=== PATIENT | female | born 1950 | race Caucasian/White ===

== ENCOUNTER 2019-08-26 12:28 | Emergency (ER) | payer MEDICARE, OTHER ==
[~2019-08-26] VITALS: Ht 165.1 cm; Wt 95.3 kg
[2019-08-26 14:55] LABS: Basophils # (auto) 0 uL; Basophils % (auto) 0.5 % (0.0-2.0); Eosinophils # (auto) 0.1 uL; Eosinophils % (auto) 0.7 % (0.0-7.0); Hematocrit 46.2 % (36.0-46.0); Hemoglobin 15.8 g/dL (12.2-16.2); Lymphocytes # (auto) 1.8 uL; Lymphocytes % (auto) 21.4 % (10.0-50.0); Mean Corpuscular Hemoglobin 33.4 pg (28.0-32.0); Mean Corpuscular Hgb Conc. 34.1 g/dL (32.0-36.0); Monocytes # (auto) 0.6 uL; Monocytes % (auto) 7.5 % (0.0-12.0); Neutrophils % (auto) 69.9 % (37.0-80.0); Platelet Count (auto) 304 10^3/uL (140-450); Red Blood Cells 4.71 10^6/uL (4.0-5.20); Red Cell Distribution Width 12.6 % (11.8-14.3); White Blood Cell 8.5 10^3/uL (4.4-10.8)
[2019-08-26 15:07] LABS: Albumin 4.4 g/dL (3.4-5.0); Anion Gap 6 (5-15); Blood Urea Nitrogen 15 mg/dL (7-18); Calcium 9.3 mg/dL (8.5-10.1); Carbon Dioxide 25 mmol/L (21-32); Chloride 108 mmol/L (98-107); Glucose 91 mg/dL (74-106); Potassium 3.7 mmol/L (3.5-5.1); Sodium 139 mmol/L (136-145)
[2019-08-26 15:09] LABS: Alanine Aminotransferase 24 U/L (13-56); Aspartate Aminotransferase 14 U/L (15-37); GFR African American 82 mL/min; GFR Non-African American 68 mL/min
[2019-08-26 15:14] LABS: Alkaline Phosphatase 106 U/L (45-117); Bilirubin, Total 0.6 mg/dL (0.2-1.0); Total Protein 7.9 g/dL (6.4-8.2)
[2019-08-26 18:54] VITALS: BP 167/91
== END 2019-08-26 18:56 | disposition home or self-care (01) ==
LOC: EDBD 12:28 → ER 12:35
DX: R56.9 Unspecified convulsions (principal); R53.1 Weakness; R20.0 Anesthesia of skin; Z88.0 Allergy status to penicillin; Z88.5 Allergy status to narcotic agent; Z88.1 Allergy status to other antibiotic agents
CPT/HCPCS: 36415; 70450; 71045; 80053; 84484; 85025

== ENCOUNTER 2020-02-12 12:16 | Inpatient (IN) | payer OTHER, MEDICAID ==
[~2020-02-12] VITALS: Ht 165.1 cm; Wt 100.3 kg
[2020-02-12] MEDS ORDERED: DOXYCYCLINE 100MG/250ML 250 ML IV ONE (14:30)
[2020-02-12] MEDS ORDERED: ZINC SULFATE 220mg CAP or TAB PO ONE (14:30)
[2020-02-12] MEDS ORDERED: ASCORBIC ACID 500 MG TAB PO ONE (14:30)
[2020-02-12 16:50] LABS: Basophils # (auto) 0 10 ^3/uL (0-0.2); Basophils % (auto) 0.3 % (0.0-2.0); Eosinophils # (auto) 0.1 10 ^3/uL (0-0.8); Eosinophils % (auto) 0.7 % (0.0-7.0); Hematocrit 44.7 % (36.0-46.0); Hemoglobin 15.2 g/dL (12.2-16.2); Lymphocytes % (auto) 21.1 % (10.0-50.0); Mean Corpuscular Hemoglobin 33.5 pg (28.0-32.0); Mean Corpuscular Hgb Conc. 33.9 g/dL (32.0-36.0); Mean Corpuscular Volume 98.9 fL (80.0-100.0); Monocytes # (auto) 0.6 10 ^3/uL (0-1.3); Neutrophils # (auto) 6.6 10 ^3/uL (1.6-8.6); Neutrophils % (auto) 70.9 % (37.0-80.0); Nucleated Red Blood Cells % 0.1 %; Platelet Count (auto) 298 10^3/uL (140-450); Red Blood Cells 4.52 10^6/uL (4.0-5.20); Red Cell Distribution Width 12.5 % (11.8-14.3); White Blood Cell 9.3 10^3/uL (4.4-10.8)
[2020-02-12 17:04] LABS: Urine Bacteria FEW /hpf (None Seen); Urine Blood 1+ /uL (Negative); Urine Specific Gravity 1.013 (1.001-1.035); Urine WBC 3 /hpf (0 - 5)
[2020-02-12 17:14] LABS: INR 0.95 (0.9-1.15); Partial Thromboplastin Time 27.3 sec (23.0-31.2)
[2020-02-12 17:29] LABS: Albumin 4.2 g/dL (3.4-5.0); Calcium 9.7 mg/dL (8.5-10.1); Magnesium 2.3 mg/dL (1.6-2.6); Potassium 4.1 mmol/L (3.5-5.1)
[2020-02-12 17:34] LABS: BUN/Creatinine Ratio 19.2; Bilirubin, Total 0.3 mg/dL (0.2-1.0); Total Protein 7.8 g/dL (6.4-8.2)
[2020-02-12] MEDS ORDERED: NITROGLYCERIN 0.4 MG SL TAB SL PRN (18:15)
[2020-02-12] MEDS ORDERED: MORPHINE SULF INJ 2 MG/ML SYRINGE 1ML IV PRN (18:15)
[2020-02-12] MEDS ORDERED: DEXTROSE (50%) 50ML SYRG IV PRN (18:45)
[2020-02-12] MEDS ORDERED: LACTULOSE 20Gm/30ML SOLN PO PRN (18:45)
[2020-02-12] MEDS ORDERED: PROMETHAZINE HCL 25 MG/ML 1ML IV PRN (18:45)
[2020-02-12] MEDS ORDERED: ACETAMINOPHEN 500 MG TAB PO PRN (18:45)
[2020-02-12] MEDS ORDERED: ALBUTEROL SULF 2.5 MG/0.5ML(0.5%) NEB SOLN NEB PRN (18:45)
[2020-02-12] MEDS ORDERED: ENALAPRILAT 1.25 MG/ML-1ML VIAL IV PRN (19:00)
[2020-02-12 21:37] VITALS: BP 168/90
[2020-02-12] MEDS ORDERED: TEMAZEPAM 15 MG CAP PO PRN (22:00)
--- NOTE | 2020-02-12 23:00 | NUR ---
MS admit from ER ADILIA,NIKOLE S admitted to tele/MS. Patient oriented to ISABELLE BISHOP, RN primary RN, room 236. Patient weighed by bedscale and encouraged to call if they need something. All questions and concerns addressed, patient verbalized understanding. Bed locked, in lowest position, call light within reach, side rails up x2. Will continue to monitor Q1hr and PRN.
[2020-02-12] MEDS: ALBUTEROL SULF 2.5 MG/0.5ML(0.5%) NEB SOLN NEB SCH (23:01)
[2020-02-12] MEDS: IPRATROPIUM BROM 0.5 MG/2.5ML INH SOL NEB SCH (23:02)
[2020-02-12] MEDS: FUROSEMIDE 40 MG/4 ML VIAL IV SCH (23:18)
[2020-02-12] MEDS: methylPREDNISolone SOD SUCC 40 MG/ML VL IV SCH (23:18)
[2020-02-12] MEDS: ENOXAPARIN SOD 40 MG/0.4 ML SYRINGE SC SCH (23:19)
[2020-02-12] MEDS: POTASSIUM CHL 20 Meq TABLET PO SCH (23:19)
[2020-02-12] MEDS: SODIUM CHLOR 0.9% PF (SALINE LOCK) 10ML VIAL/SYR IV SCH (23:19)
[2020-02-12] MEDS: CARVEDILOL 3.125 MG TAB PO SCH (23:20)
[2020-02-12] MEDS: ACCU-CHEK COMFORT CURVE STRIP VI SCH (23:20)
[2020-02-12] MEDS: GABAPENTIN 300 MG CAP PO SCH (23:20)
[2020-02-12] MEDS: InsuLIN REG 1unit/0.01ml Soln (100units/ml) SC SCH (23:20)
[2020-02-12] MEDS: ATORVASTATIN 20 MG TAB PO SCH (23:20)
[2020-02-12] MEDS: MORPHINE SULF INJ 2 MG/ML SYRINGE 1ML IV PRN (23:20)
[2020-02-13] VITALS (7 sets, daily range): BP systolic 107–148; BP diastolic 74–94
[2020-02-13] MEDS: SODIUM CHLOR 0.9% PF (SALINE LOCK) 10ML VIAL/SYR IV SCH ×3 (05:28→21:38)
[2020-02-13] MEDS: GABAPENTIN 300 MG CAP PO SCH ×3 (05:28→21:36)
[2020-02-13] MEDS: MORPHINE SULF INJ 2 MG/ML SYRINGE 1ML IV PRN ×4 (05:29→23:56)
[2020-02-13] MEDS: methylPREDNISolone SOD SUCC 40 MG/ML VL IV SCH ×2 (06:38→17:56)
[2020-02-13] MEDS: DOXYCYCLINE 100MG/250ML 250 ML IV SCH ×2 (06:38→18:00)
[2020-02-13] MEDS: InsuLIN REG 1unit/0.01ml Soln (100units/ml) SC SCH ×4 (06:39→21:38)
[2020-02-13] MEDS: LEVOTHYROXINE SODIUM 112 MCG TAB PO SCH (06:39)
[2020-02-13] MEDS: ACCU-CHEK COMFORT CURVE STRIP VI SCH ×4 (06:39→21:37)
[2020-02-13] MEDS: IPRATROPIUM BROM 0.5 MG/2.5ML INH SOL NEB SCH ×4 (06:41→22:15)
[2020-02-13] MEDS: ALBUTEROL SULF 2.5 MG/0.5ML(0.5%) NEB SOLN NEB SCH ×4 (06:41→22:14)
[2020-02-13] MEDS: ASPirin 81 mg TAB PO SCH (09:26)
[2020-02-13] MEDS: POTASSIUM CHL 20 Meq TABLET PO SCH (09:27)
[2020-02-13] MEDS: ENALAPRIL MALEATE 2.5 MG TAB PO SCH (09:28)
[2020-02-13] MEDS: FUROSEMIDE 40 MG/4 ML VIAL IV SCH (09:28)
[2020-02-13] MEDS: CARVEDILOL 3.125 MG TAB PO SCH ×2 (09:29→21:42)
[2020-02-13] MEDS: NITROGLYCERIN 0.2MG/HR TOPICAL PATCH TD SCH (09:31)
--- NOTE | 2020-02-13 09:35 | NUR ---
Patient sitting on side of bed with no complaint of pain. Scheduled medications given per order. Patient stable at this time.
--- NOTE | 2020-02-13 10:25 | NUR ---
Patient sitting on side of bed with Dr. Gaona at bedside. Patient stable.
[2020-02-13] MEDS ORDERED: IOHEXOL 350 MG/ML 100ML IJ ONE (11:33)
--- NOTE | 2020-02-13 11:50 | NUR ---
Patient resting quietly in bed with Echo in progress. Checked blood sugar: 262 mg/dl - will cover per sliding scale. Patient stable.
[2020-02-13] MEDS: ENOXAPARIN SOD 40 MG/0.4 ML SYRINGE SC SCH (12:07)
--- NOTE | 2020-02-13 12:12 | NUR ---
Covered per sliding scale. Scheduled subq med given. Patient medicated for 10/10 chest pain. Echo still in progress. Patient stable.
--- NOTE | 2020-02-13 13:15 | NUR ---
Patient taken via wheelchair to XR Dept for CT.
--- NOTE | 2020-02-13 13:30 | NUR ---
Patient returned to unit in stable condition. Patient now sitting on side of bed with no respiratory distress noted.
--- NOTE | 2020-02-13 14:06 | NUR ---
ss consult Per ss consult advanced directive. Jess unit sec will provide patient with advanced directive in covid unit. Addendum: 02/13/20 at 1407 by Shani RAJAN Amended: Links added.
--- NOTE | 2020-02-13 14:28 | NUR ---
Patient ambulated to bathroom and back to bed. Scheduled medication given per order. Patient sitting on side of bed with no respiratory distress noted. Patient stable.
--- NOTE | 2020-02-13 17:59 | NUR ---
Patient sitting in bed with no distress noted. Checked blood sugar: 201 mg/dl - will cover per sliding scale. Patient stable.
--- NOTE | 2020-02-13 19:08 | NUR ---
Respiratory note: PT NOT IN ROOM AT THIS TIME FOR SCHEDULED MED NEB
--- NOTE | 2020-02-13 19:28 | NUR ---
Called Pharmacy: Called pharmacy regarding IV Vibramycin. Out of IV Vibramycin, informed to call hospitalist to change to PO. Will call hospitalist.
--- NOTE | 2020-02-13 19:32 | NUR ---
Called and spoke with Hospitalist: Spoke with Hospitalist Derrek regarding IV Vibramycin out of stock. Hospitalist informed to notify day shift hospitalist regarding Vibramycin.
--- NOTE | 2020-02-13 19:35 | NUR ---
Opening Shift Note Assumed care of patient, awake and alert. No S/S of distress/SOB noted. Instructed on POC and to call for assist PRN. Bed is in lowest locked position with bed rails up x2 and call light is within reach of the patient.
--- NOTE | 2020-02-13 19:58 | NUR ---
Respiratory note: PT STILL NOT IN ROOM AT THIS TIME FOR SCHEDULED MED NEB TX. WILL RESUME WITH NEXT SCHEDULED MED NEB
--- NOTE | 2020-02-13 21:18 | NUR ---
Diaper: Educated patient about no diaper policy and risk for skin break down. Patient refused to take off diaper but verbalized understanding of education.
[2020-02-13] MEDS: traMADol HCL 50 MG TAB PO PRN (21:37)
[2020-02-13] MEDS: ATORVASTATIN 20 MG TAB PO SCH (21:37)
[2020-02-14 05:00] VITALS: BP 128/76
[2020-02-14] MEDS: MORPHINE SULF INJ 2 MG/ML SYRINGE 1ML IV PRN ×2 (05:00→10:44)
[2020-02-14] MEDS: DOXYCYCLINE 100MG/250ML 250 ML IV SCH (06:00)
[2020-02-14] MEDS: GABAPENTIN 300 MG CAP PO SCH (06:13)
[2020-02-14] MEDS: SODIUM CHLOR 0.9% PF (SALINE LOCK) 10ML VIAL/SYR IV SCH (06:15)
[2020-02-14] MEDS: ACCU-CHEK COMFORT CURVE STRIP VI SCH (06:16)
[2020-02-14] MEDS: InsuLIN REG 1unit/0.01ml Soln (100units/ml) SC SCH (06:16)
[2020-02-14] MEDS: methylPREDNISolone SOD SUCC 40 MG/ML VL IV SCH (06:17)
[2020-02-14] MEDS: traMADol HCL 50 MG TAB PO PRN ×2 (06:20→11:00)
[2020-02-14] MEDS: ALBUTEROL SULF 2.5 MG/0.5ML(0.5%) NEB SOLN NEB SCH ×2 (06:21→12:14)
[2020-02-14] MEDS: IPRATROPIUM BROM 0.5 MG/2.5ML INH SOL NEB SCH ×2 (06:21→12:14)
[2020-02-14] MEDS ORDERED: TRAZ-181 PO (06:23)
[2020-02-14] MEDS ORDERED: MELA3TAB27 PO (06:24)
[2020-02-14] MEDS ORDERED: GABA300C10 PO (06:24)
[2020-02-14] MEDS ORDERED: CYCL7.5T45 PO (06:27)
[2020-02-14] MEDS ORDERED: DIPH1TAB30 PO (06:27)
[2020-02-14] MEDS ORDERED: HYDR-4833 PO (06:31)
[2020-02-14] MEDS ORDERED: ALBUAER3 IN (06:31)
[2020-02-14] MEDS: LEVOTHYROXINE SODIUM 112 MCG TAB PO SCH (06:34)
--- NOTE | 2020-02-14 07:20 | NUR ---
Patient sitting on side of bed with no distress noted. Denies any pain at this time. Patient stable.
[2020-02-14 08:00] VITALS: BP 137/88
[2020-02-14 08:30] VITALS: BP 137/88
[2020-02-14] MEDS: ASPirin 81 mg TAB PO SCH (10:40)
[2020-02-14] MEDS: CARVEDILOL 3.125 MG TAB PO SCH (10:41)
[2020-02-14] MEDS: POTASSIUM CHL 20 Meq TABLET PO SCH (10:41)
[2020-02-14] MEDS: ENALAPRIL MALEATE 2.5 MG TAB PO SCH (10:42)
[2020-02-14] MEDS: ENOXAPARIN SOD 40 MG/0.4 ML SYRINGE SC SCH (10:42)
[2020-02-14] MEDS: NITROGLYCERIN 0.2MG/HR TOPICAL PATCH TD SCH (10:43)
--- NOTE | 2020-02-14 10:45 | NUR ---
Patient sitting on side of bed with no respiratory distress noted. Scheduled medications given per order. Patient requested pain med for generalized pain. Will medicate. Patient stable at this time.
--- NOTE | 2020-02-14 11:00 | NUR ---
Patient medicated for generalized pain. Patient stable at this time.
[2020-02-14 11:14] VITALS: BP 137/88
--- NOTE | 2020-02-14 12:15 | NUR ---
Discharge instructions / discharge Both written and verbal discharge instructions given to patient. Patient verbalized understanding of instructions. Prescription medications given as well; patient instructed to take all medications as prescribed. Discussed with patient and written information given to patient regarding smoking cessation. Patient verbalized understanding. Peripheral IV inadvertently pulled out earlier. Telemetry box removed. All belongings with patient. Discharged to home in stable condition.
[2020-02-15] MEDS ORDERED: FUROSEMIDE 40 MG TAB PO SCH (10:00)
== END 2020-02-14 12:15 | disposition home or self-care (01) | DRG 291 ==
LOC: ER 12:16 → TELE 12:17 → TELE-EAST 22:20 → TELE-CENTR 02-13 07:30
PROVIDERS: ADMIT Internal Medicine; ATTEND Internal Medicine
DX: I13.0 Hypertensive heart and chronic kidney disease with heart failure and stage 1 through stage 4 chronic kidney disease, or unspecified chronic kidney disease (principal); J18.9 Pneumonia, unspecified organism; I50.41 Acute combined systolic (congestive) and diastolic (congestive) heart failure; J44.1 Chronic obstructive pulmonary disease with (acute) exacerbation; N18.2 Chronic kidney disease, stage 2 (mild); I25.10 Atherosclerotic heart disease of native coronary artery without angina pectoris; E11.22 Type 2 diabetes mellitus with diabetic chronic kidney disease; E11.40 Type 2 diabetes mellitus with diabetic neuropathy, unspecified; Z20.828 Contact with and (suspected) exposure to other viral communicable diseases; E03.9 Hypothyroidism, unspecified; E78.5 Hyperlipidemia, unspecified; F17.210 Nicotine dependence, cigarettes, uncomplicated; E66.01 Morbid (severe) obesity due to excess calories; F32.9 Major depressive disorder, single episode, unspecified; F41.9 Anxiety disorder, unspecified; G89.29 Other chronic pain; M19.90 Unspecified osteoarthritis, unspecified site; I25.2 Old myocardial infarction; Z82.49 Family history of ischemic heart disease and other diseases of the circulatory system; Z83.3 Family history of diabetes mellitus; Z86.73 Personal history of transient ischemic attack (TIA), and cerebral infarction without residual deficits; Z90.49 Acquired absence of other specified parts of digestive tract; Z79.899 Other long term (current) drug therapy; I16.0 Hypertensive urgency; Z68.35 Body mass index [BMI] 35.0-35.9, adult
CPT/HCPCS: 36415; 71045; 71275; 80053; 81001; 82550; 82962; 83036; 83605; 83735; 83880; 84484; 85025; 85379; 85610; 85730; 86141; 87040; 87070; 87205; 93306; 94640; 96365; G0378; J1815; J3490